=== PATIENT | female | born 1955 | race Caucasian/White ===

== ENCOUNTER 2018-03-29 13:59 | Emergency (ER) | payer OTHER | END 2018-03-29 14:58 | disposition home or self-care (01) | LOC: FTE 13:59 | DX: J01.00 Acute maxillary sinusitis, unspecified (principal); I10 Essential (primary) hypertension | CPT/HCPCS: 99283 ==

== ENCOUNTER 2019-01-05 11:19 | Emergency (ER) | payer MEDICARE, OTHER | END 2019-01-05 12:17 | disposition home or self-care (01) | LOC: FTE 11:19 | DX: J06.9 Acute upper respiratory infection, unspecified (principal); I10 Essential (primary) hypertension | CPT/HCPCS: 99283 ==